=== PATIENT | female | born 1965 | race African-American/Black ===

== ENCOUNTER 2017-02-01 10:48 | Emergency (ER) | payer OTHER ==
[~2017-02-01] VITALS: Ht 172.7 cm; Wt 63.5 kg
[2017-02-01 10:48] VITALS: BP 175/79
[~2017-02-01 10:48] MED LIST: HYDR-971 PO; HYDR1TAB12 PO; ONDA4TAB10 PO; SULF1TAB24 PO
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
== END 2017-02-01 11:08 | disposition home or self-care (01) ==
LOC: ER 10:48
DX: Z71.1 Person with feared health complaint in whom no diagnosis is made (principal); Z88.6 Allergy status to analgesic agent; Z88.8 Allergy status to other drugs, medicaments and biological substances
CPT/HCPCS: 99281

== ENCOUNTER 2017-02-07 14:25 | Emergency (ER) | payer OTHER ==
[~2017-02-07] VITALS: Ht 172.7 cm; Wt 63.5 kg
--- NOTE | 2017-02-07 15:19 | RAD ---
Lumbar spine, 3 views, 02/07/2017: History: Back pain, multiple falls The lumbar vertebral heights are well-maintained. The intervertebral disc spaces are well preserved. No fracture or dislocation is identified. There are only minimal scattered marginal spurs. Aortic calcific plaquing is present. IMPRESSION: No acute lumbar spine abnormality is detected.
[2017-02-07 16:06] LABS: BACTERIA,URINE 0 /HPF (0-FEW); BILIRUBIN,URINE NEG (NEG); CLARITY,URINE CLEAR; COLOR,URINE YELLOW; GLUCOSE,URINE NEG (NEG); NITRITE,URINE NEG (NEG); RBC,URINE RARE /HPF (0-2); UROBILINOGEN,URINE 0.2 mg/dL (0.2 mg/dL)
[2017-02-07 16:07] LABS: SQUAMOUS EPITHELIAL CELL,UR FEW /LPF
--- NOTE | 2017-02-07 16:19 | PHYS DOC ---
Past History Past Medical History: Bipolar, Depression, Fibromyalgia, Other Past Surgical History: Hysterectomy, Other Alcohol Use: Occasionally Drug Use: Marijuana Adult General Chief Complaint Chief Complaint: MECHANICAL FALL HPI HPI Patient is a 52 year old female who presents with pain after a fall. She states last evening she slipped out of a chair & fell to the ground. She denies head trauma or loss of consciousness. She complains of generalized pain worse in lower back. Reported left knee pain & bilateral shoulder pain to RN, but denies shoulder pain to me & says she has abrasion to left knee but no bony pain, able to bear weight. She denies syncope as contributing factor in fall. She denies use of blood thinners. Denies extremity numbness/weakness, bowel/ bladder incontinence/retention, saddle anesthesia. She does have mild dysuria today only without fevers, abdominal pain, vomiting. Review of Systems Review of Systems Constitutional: Denies fever or chills Eyes: Denies change in visual acuity HENT: Denies nasal congestion or sore throat Respiratory: Denies cough or shortness of breath Cardiovascular: Denies chest pain GI: Denies abdominal pain, nausea, vomiting, bloody or diarrhea : Reports dysuria Musculoskeletal: Reports back & knee pain. Integument: Denies rash or skin lesions Neurologic: Denies headache, focal weakness or sensory changes Allergies Allergies Allergies Coded Allergies Type Severity Reaction Last Updated Verified aspirin Allergy Intermediate 03/04/16 Yes pregabalin Allergy Intermediate 03/04/16 Yes Physical Exam Physical Exam Constitutional: Well developed, well nourished, no acute distress, non-toxic appearance. HENT: Normocephalic, atraumatic, bilateral external ears normal, oropharynx moist, nose normal. Eyes: PERRLA, EOMI, conjunctiva normal, no discharge. Neck: supple, no stridor. no midline c-spine tenderness. Cardiovascular: RRR, no murmurs, no edema. Lungs & Thorax: LCTAB, no wheezing, no respiratory distress. Abdomen: soft, nontender, nondistended. Skin: Warm, dry, no erythema, no rash. Back: generalized lumbar spine tenderness without step offs, left CVA tenderness. Extremities: bilateral shoulders no focal bony tenderness. left knee no swelling/deformity, there is a small 3 cm very superficial abrasion to superolateral left knee. normal ROM, negative anterior/posterior drawer, stable to valgus/varus stress, dp/pt 2+, sensation intact to foot. Neurologic: Alert and oriented X 3, no focal deficits noted. Psychologic: paranoid Current Patient Data Vital Signs Vital Signs Date Time Temp Pulse Resp B/P (MAP) Pulse Ox O2 Delivery O2 Flow Rate FiO2 02/07/17 14:25 98.5 96 18 97 Room Air Lab Results Laboratory Tests Test 02/07/17 15:35 Urine Collection Type Unknown Urine Color Yellow Urine Clarity Clear Urine pH 6.0 Urine Specific [place] 1.020 Urine Protein Neg (NEG-TRACE) Urine Glucose (UA) Neg mg/dL (NEG) Urine Ketones (Stick) Neg mg/dL (NEG) Urine Blood Neg (NEG) Urine Nitrite Neg (NEG) Urine Bilirubin Neg (NEG) Urine Urobilinogen Dipstick 0.2 mg/dL (0.2 mg/dL) Urine Leukocyte Esterase Neg (NEG) Urine RBC Rare /HPF (0-2) Urine WBC 1-4 /HPF (0-4) Urine Squamous Epithelial Cells Few /LPF Urine Bacteria 0 /HPF (0-FEW) Urine Mucus Slight /LPF EKG EKG [] Radiology/Procedures Radiology/Procedures PROCEDURE: LUMBAR SPINE 2-3V Lumbar spine, 3 views, 02/07/2017: History: Back pain, multiple falls The lumbar vertebral heights are well-maintained. The intervertebral disc spaces are well preserved. No fracture or dislocation is identified. There are only minimal scattered marginal spurs. Aortic calcific plaquing is present. IMPRESSION: No acute lumbar spine abnormality is detected. DICTATED AND SIGNED BY: KAREEM QUILES MD DATE: 02/07/17 1516[] Course & Med Decision Making Course & Med Decision Making Pertinent Labs and Imaging studies reviewed. (See chart for details) The patient presents with pain after a fall. She is well appearing with minimal findings on exam. Obtained x-ray of lumbar spine which was the only location with bony tenderness on my exam. No acute findings. She had very mild CVA tenderness but no evidence of UTI, no significant blood. Recommend supportive care for minor injuries from mechanical fall. Tylenol/ibuprofen, ice /heat, triple antibiotic ointment on abrasion. Patient slept through her visit & was upset that she was not given pain medication. I find no indication for narcotic pain medication based on exam today. Patient instructed to follow up with primary care, return for symptoms of cauda equina syndrome or otherwise worsening condition. Discharged home in stable condition. [] Dragon Disclaimer Dragon Disclaimer This chart was dictated in whole or in part using Voice Recognition software in a busy, high-work load, and often noisy Emergency Department environment. It may contain unintended and wholly unrecognized errors or omissions. Departure Departure: Impression: Primary Impression: Lower back pain Disposition: HOME, SELF-CARE Condition: STABLE Referrals: TERRIE CASAS APRN (PCP) Patient Instructions: Back Pain, Adult, [id number] Additional Instructions: You were seen in the emergency department today for pain after your fall. your x-ray & urine test were normal. Please rest, take tylenol or ibuprofen for pain. Follow up with your primary care doctor in 2-3 days. Come back for loss of control of bowels or bladder, numbness or weakness in arms or legs, or otherwise worsening condition. SPIKE LATIF MD Feb 07, 2017 16:19
[2017-02-07 16:24] VITALS: BP 98/51
[2017-02-07] MEDS ORDERED: ACETAMINOPHEN 500 MG TABLET PO ONE (16:45)
[2017-02-07] MEDS ORDERED: CYCLOBENZAPRINE 10 MG TABLET. PO ONE (16:45)
== END 2017-02-07 16:24 | disposition home or self-care (01) ==
LOC: ER 14:25
DX: M54.5 Low back pain (principal); M25.512 Pain in left shoulder; M25.511 Pain in right shoulder; M25.561 Pain in right knee; R30.0 Dysuria; S80.212A Abrasion, left knee, initial encounter; M79.7 Fibromyalgia; R29.6 Repeated falls; Z88.6 Allergy status to analgesic agent; Z88.8 Allergy status to other drugs, medicaments and biological substances; W07.XXXA Fall from chair, initial encounter; Y93.89 Activity, other specified; Y99.8 Other external cause status; Y92.89 Other specified places as the place of occurrence of the external cause
CPT/HCPCS: 72100; 81001; 99285-25

== ENCOUNTER 2017-02-07 20:33 | Emergency (ER) | payer OTHER ==
[~2017-02-07] VITALS: Ht 172.7 cm; Wt 63.5 kg
[2017-02-07 20:40] VITALS: BP 113/59
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
== END 2017-02-07 21:05 | disposition home or self-care (01) ==
LOC: ER 20:33
DX: M54.5 Low back pain (principal); G89.29 Other chronic pain; M79.7 Fibromyalgia; F31.9 Bipolar disorder, unspecified; Z90.710 Acquired absence of both cervix and uterus; Z88.6 Allergy status to analgesic agent; Z88.8 Allergy status to other drugs, medicaments and biological substances
CPT/HCPCS: 99281; 99284

== ENCOUNTER 2017-04-10 10:17 | Inpatient (IN) | payer OTHER ==
[~2017-04-10] VITALS: Ht 172.7 cm; Wt 66.8 kg
--- NOTE | 2017-04-10 10:37 | PHYS DOC ---
General Chief Complaint: ALTERED MENTAL STATUS Stated Complaint: ALTERED LOC Time Seen by MD: 10:21 Source: patient, EMS Exam Limitations: clinical condition Problems: History of Present Illness Initial Comments Pt is 52/F to ED via EMS for AMS. EMS reports pt known to be homeless in the past found by law enforcement wandering on side of road disoriented. Her gait was reportedly unsteady and she appeared to be disoriented. Law enforcement feared she may have a medical emergency or walk out in front of a car so they called EMS. In her possession was a bag containing eviction letter and fresh emesis. EMS reports that the patient has no neuro deficits is protecting her airway and clearing her secretions but she appears to be very sleepy or under the influence. They report patient is disoriented 3 and will not rouse. Her VSS, GCS 14, pt has been to this ED in the past. Pt has h/o homelessness/ mental illness/drug seeking/substance abuse. In the emergency department patient did withdraw to pain with IV attempts she is a very difficult stick and required a left external jugular for vascular access. When advised of Hernandez catheter insertion the patient did wake up enough to avoid in a bedside commode and she was oriented 3 at that time according to the medic attending to her. Patient did complain of diffuse abdominal discomfort and back pain during the short time she was awake. Difficult to evaluate these symptoms as pt has h/o drug seeking. On my evaluation patient requires a sternal rub to wake, she will not answer questions and appears to continue snoring even when I manually open her right eye to check her pupils. There is no odor of alcohol but the patient is obviously heavily sedated. Timing/Duration: unsure Severity: moderate Modifying Factors: improves with other Associated Symptoms: other Allergies: Coded Allergies: aspirin (Verified Allergy, Intermediate, 03/04/16) pregabalin (Verified Allergy, Intermediate, 03/04/16) Past Medical History Medical History: other (bipolar, depression, fibromyalgia, drug seeking, chronic back pain) Surgical History: other (hysterectomy) Social History Smoker: cigarettes Alcohol: occasionally Drugs: marijuana Review of Systems All Other Systems: Reviewed and Negative (disoriented, accurate ROS unobtainable) Physical Exam Eyes: right eye normal inspection, right eye PERRL, right eye EOMI (patient does move her right eye independently but not following any type of instruction) , left eye other (no mass) Ear, Nose, Throat: hearing grossly normal, normal ENT inspection (poor dentition), normal pharynx Neck: full range of motion, supple Respiratory: normal breath sounds, no respiratory distress Cardiovascular: normal peripheral pulses, regular rate, rhythm Gastrointestinal: normal bowel sounds, non tender, soft, no organomegaly ( nondistended no mass) Back: no CVA tenderness, no vertebral tenderness Extremities: normal range of motion, non-tender, no pedal edema, no calf tenderness, pelvis stable Neurologic/Psychiatric: music publisher II-XII nml as tested, no motor/sensory deficits, oriented x 3, other (sedated/lethargic, no lateralizing neurodeficit) Skin: warm/dry (poor turgor) Orders, Labs, Meds PATIENT: LEANDRO RODRÍGUEZ ACCOUNT: [id number] : 1965 LOCATION: ER AGE: 52 SEX: F EXAM STATUS: REG ER ORD. PHYSICIAN: JS LEIJA DO REASON: AMS PROCEDURE: PORTABLE CHEST 1V Indication: Altered mental status. Time of exam 10:49 AM Correlation is made with prior study from 05/12/2016. FINDINGS: The heart size is normal. The lungs are clear. No pleural effusion or pneumothorax is identified. The pulmonary vascularity is normal. IMPRESSION: No acute abnormality detected. DICTATED AND SIGNED BY: ROBIN BURGOS MD DATE: 04/10/17 1102 CC: TERRIE CASAS FINANCIAL COACH; JS LEIJA DO ~ UDS +cocaine, methamphetamine, benzodiazepines CMP, CK, Trop I all normal Hb 11.7 normocytic UA: few SE, 1-4 WBC, mod LE EKG: NSR 70 bpm, incomplete RBBB no STEMI. Interpreted by Dr Leija 1310: Pt is on 2nd L NS IV bolus, rocephin 1g IV also initiated for possible UTI. Pt remains stable yet sedated, no improvement in rousability. I have asked that stone and concrete washer hospitalist be paged to discuss possible admission/ observation. Pt may be sedated due to benzodiazepines, may have been up for days due to illicit stimulants now somnolescent as effect wanes. I considered a benzodiazepine reversal agent but in the context of custodial polypharmacy seizure possibility outweighs early waking of patient. 1336: I discussed the patient with stone and concrete washer hospitalist Dr. Luna. After thorough discussion of the patient's history, presentation, and ED course/findings he agrees to accept the patient for inpatient telemetry admission to continue observation and IV hydration, antibacterial treatment intravenously for UTI, and monitor cardiac enzymes/CK until she is fully awake. Impressions: Polysubstance abuse/intoxication Hyper somnolescent Urinary tract infection Normocytic anemia Departure Time of Disposition: 13:38 Disposition: 09 ADMITTED INPATIENT Condition: STABLE JS LEIJA DO Apr 10, 2017 10:37
[2017-04-10] MEDS ORDERED: IV NORMAL SALINE 1,000ML 1,000 ML IV SCH ×2 (10:45→12:39)
--- NOTE | 2017-04-10 11:05 | RAD ---
Indication: Altered mental status. Time of exam 10:49 AM Correlation is made with prior study from 05/12/2016. FINDINGS: The heart size is normal. The lungs are clear. No pleural effusion or pneumothorax is identified. The pulmonary vascularity is normal. IMPRESSION: No acute abnormality detected.
[2017-04-10 11:23] LABS: AMPHETAMINE/METHAMPHETAMINE POS (NEG); BACTERIA,URINE 0 /HPF (0-FEW); BARBITURATES NEG (NEG); BENZODIAZEPINES POS (NEG); BILIRUBIN,URINE NEG (NEG); CANNABINOIDS NEG (NEG); CLARITY,URINE HAZY; COCAINE POS (NEG); COLOR,URINE YELLOW; GLUCOSE,URINE NEG (NEG); METHADONE NEG (NEG); NITRITE,URINE NEG (NEG); OPIATES NEG (NEG); PHENCYCLIDINE NEG (NEG); RBC,URINE 0 /HPF (0-2); SQUAMOUS EPITHELIAL CELL,UR FEW /LPF; UROBILINOGEN,URINE 0.2 mg/dL (0.2 mg/dL)
[2017-04-10 12:09] LABS: BASO # 0.1 x10^3/uL (0.0-0.2); BASO % 1 % (0-3); EOS # 0.1 x10^3/uL (0.0-0.7); EOS % 2 % (0-3); HEMATOCRIT 35.5 % (36.0-47.0); HEMOGLOBIN 11.7 g/dL (12.0-15.5); LYMPH # 2.7 x10^3/uL (1.0-4.8); LYMPH % 57 % (24-48); MEAN CORPUSCULAR HEMOGLOBIN 31 pg (25-35); MEAN CORPUSCULAR HGB CONC 33 g/dL (31-37); MEAN CORPUSCULAR VOLUME 94 fL (79-100); MONO # 0.4 x10^3/uL (0.0-1.1); MONO % 8 % (0-9); NEUT # 1.5 x10^3uL (1.8-7.7); NEUT % 32 % (31-73); PLATELET COUNT 354 x10^3/uL (140-400); RED BLOOD COUNT 3.79 x10^6/uL (3.50-5.40); RED CELL DISTRIBUTION WIDTH 14.7 % (11.5-14.5); WHITE BLOOD COUNT 4.7 x10^3/uL (4.0-11.0)
[2017-04-10 12:18] LABS: ACETAMIN < 2.0 mcg/mL (10-30); ETHANOL < 10 mg/dL (0-10); SALIC 3.2 mg/dL (2.8-20.0)
[2017-04-10 12:20] LABS: ALBUMIN 3.5 g/dL (3.4-5.0); CALCIUM 9.3 mg/dL (8.5-10.1); CREATININE 0.8 mg/dL (0.6-1.0); GFR 91.5; MAGNESIUM 2.1 mg/dL (1.8-2.4); TOTAL BILIRUBIN 0.2 mg/dL (0.2-1.0); TOTAL PROTEIN 7.8 g/dL (6.4-8.2)
[2017-04-10 12:22] LABS: DIRECT BILIRUBIN 0.1 mg/dL (0.0-0.2); POTASSIUM 3.9 mmol/L (3.5-5.1)
--- NOTE | 2017-04-10 12:57 | EKG ---
[address] [address] Test Date: 2017-04-10 Test Time: 11:59:27 Pat Name: LEANDRO RODRÍGUEZ Department: Room: Gender: F Loading Machine Adjuster: VIANCA : 1965 Requested By: JS LEIJA Order Number: [id number] Reading MD: Rohit Dangelo MD Measurements Intervals [place] Rate: 70 P: 52 VA: 156 QRS: 60 QRSD: 86 T: 55 QT: 396 QTc: 430 Interpretive Statements SINUS RHYTHM Electronically Signed On 04-11-2017 16:40:37 MARKER HAND by Rohit Dnagelo MD
[2017-04-10] MEDS ORDERED: cefTRIAXone SODIUM 1 GM VIAL IV ONE (13:36)
[2017-04-10] MEDS ORDERED: IV NORMAL SALINE 50ML 50 ML ONE (13:36)
[2017-04-10] MEDS ORDERED: ONDANSETRON PF 4 MG/2 ML VIAL. IV PRN (13:45)
[2017-04-10 16:27] VITALS: BP 105/69
[2017-04-10] MEDS ORDERED: ALBUTEROL SULFATE 2.5 MG/3 ML NEBU. NEB PRN (16:30)
--- NOTE | 2017-04-10 18:01 | HP ---
ADMIT DATE: 04/10/2017 HISTORY OF PRESENT ILLNESS: The patient is a 52-year-old female patient who was brought to the Emergency Room by emergency medical services for altered mental status. She is reportedly homeless in the past, found by law enforcement wandering on the side of the road disoriented. Her gait was reportedly unsteady and she appeared to be disoriented. The law enforcement fears that she may have a medical emergency or walk out in front of a car, so they called EMS. In her possession was a bag containing eviction letter and fresh emesis. Apparently when she was seen initially, she has no new neurological deficit. She is protecting her airways and clearing her secretions, but she appears to be very sleepy or under the influence. They report the patient is disoriented x 3 and will not arouse; however, on arrival to the Emergency Room, her vital signs were stable. Her Sarah coma scale was 14. The patient has been to this Emergency Room on multiple occasions before. She does have a history of homelessness mental illness, drug seeking and substance abuse. In the Emergency Department, the patient did not withdraw to pain, with IV attempts as she is very difficult stick and required a left external jugular for vascular access. When advised a Hernandez catheter insertion, the patient did wake up enough to void in bedside commode and she was oriented x 3 at that time according to the medical attending to her. The patient did complain of diffuse abdominal discomfort and back pain during short time she was awake. Difficult to evaluate her symptoms as patient has history of drug seeking. When she was evaluated by the Emergency Room physician, she requires a sternal rub to wake. She will not answer questions and appears to continue snoring even when I manually open her eyes to check her pupils. There is no odor of alcohol, but the patient is obviously heavily sedated. PAST MEDICAL HISTORY: Significant for bipolar disorder, depression, fibromyalgia, drug seeking, chronic back pain. PAST SURGICAL HISTORY: Significant for hysterectomy. ALLERGIES: She is allergic to ASPIRIN and PREGABALIN. MEDICATIONS: She is on hydrocodone/APAP 5/325 one to two tablets every 6 hours. She is on ondansetron 4 mg every 6 hours, and sulfamethoxazole/trimethoprim 1 tablet twice a day. FAMILY HISTORY: Unobtainable. SOCIAL HISTORY: She is homeless. She does smoke cigarettes or drink alcohol occasionally and abuse marijuana. PHYSICAL EXAMINATION: GENERAL: In the Emergency Room, the patient basically was sleepy and difficult to arouse, but general examination showed that she was pale, but no jaundice, cyanosis, or thyromegaly, no jugular venous distension, no lower limb edema. VITAL SIGNS: Her heart rate was 72, blood pressure was 103/65, temperature was 97.6, respiratory rate was 16 and oxygen saturation was 100% on room air. HEAD, EYES, EARS, NOSE AND THROAT: Showed normocephalic, atraumatic. NECK: Supple. HEART: Showed normal first and second heart sounds. No gallop, rub or murmur. CHEST: Clear to auscultation. No crepitation or rhonchi. ABDOMEN: Distended, soft, nontender. No guarding or rigidity. No organomegaly. Hernial orifice intact. Bowel sounds normal. NEUROLOGIC: She was sleepy, but arousable. All her cranial nerves are intact. EXTREMITIES: She moves extremities without difficulty. LABORATORY DATA: While in the Emergency Room, she has had lab work done, which showed a white cell count 4700, hemoglobin 11.7, hematocrit 35.5, MCV 94, platelet count of 354,000. Her chemistry showed a serum sodium 138, potassium 3.9, chloride 103, bicarbonate 28, anion gap of 7, BUN 20, creatinine was 0.8. Estimated GFR was 91 mL per minute. Her glucose 82, calcium was 9.3, magnesium 2.1. Total bilirubin, AST, ALT, alkaline phosphatase were normal. CK was 79. Troponin was less than 0.017. Total protein was 7.8, albumin was 3.5, and lipase 112. Urinalysis showed the urine was yellow, hazy with a pH of 6.5, specific gravity 1.015. The urine was negative for glucose, ketones, blood, nitrite. There was moderate amount of leukocyte esterase, 0 rbc's, 1-4 wbc's, no bacteria. However, her toxic screen was positive for amphetamine, methamphetamine, benzodiazepine, cocaine, negative for opiates, methadone, acetaminophen, salicylate, barbiturates, phencyclidine and alcohol. ASSESSMENT AND PLAN: The patient was started on IV fluid. She was also started on IV antibiotic. We will monitor her labs as she probably has been into sleep for 2-3 days and took large amount of Xanax; I think she took about 7, according to the ER physician, and now she is crashing. We will monitor all her lab works tomorrow and decide on further management accordingly. JAZ ROSE MD DR: EBONY/maikol JOB#: [id number] / [id number]
[2017-04-10] MEDS: IV NORMAL SALINE 1,000ML 1,000 ML IV SCH ×2 (18:03→20:25)
[2017-04-10] MEDS: ACETAMINOPHEN 325 MG TABLET PO PRN (18:05)
[2017-04-10 19:22] VITALS: BP 83/50
[2017-04-10 21:29] VITALS: BP 95/62
[2017-04-10 23:41] VITALS: BP 91/54
[2017-04-11] MEDS ORDERED: TRAZ-90 PO (00:18)
[2017-04-11] MEDS ORDERED: LISI-334 PO (00:18)
[2017-04-11] MEDS ORDERED: LORA10TA3 PO (00:18)
[2017-04-11] MEDS ORDERED: FAMO20TA5 PO (00:18)
[2017-04-11] MEDS ORDERED: RISP1TAB3 PO (00:18)
[2017-04-11] MEDS ORDERED: DIVA500T17 PO (00:18)
[2017-04-11] MEDS ORDERED: OMEP20CA9 PO (00:18)
[2017-04-11] MEDS ORDERED: ALBU8.5H8 INH (00:18)
[2017-04-11] MEDS ORDERED: ARIP10TA15 PO (00:18)
[2017-04-11] MEDS ORDERED: FLUO20CA8 PO (00:18)
[2017-04-11] MEDS ORDERED: CLON0.25 PO (00:18)
[2017-04-11] MEDS: IV NORMAL SALINE 1,000ML 1,000 ML IV SCH ×2 (01:07→14:07)
[2017-04-11] MEDS: ACETAMINOPHEN 325 MG TABLET PO PRN ×2 (05:24→10:51)
[2017-04-11 05:43] VITALS: BP 109/75
[2017-04-11] MEDS ORDERED: ONDA4TAB12 PO (07:34)
[2017-04-11 09:04] LABS: BASO % 1 % (0-3); EOS # 0.1 x10^3/uL (0.0-0.7); EOS % 2 % (0-3); HEMATOCRIT 34.1 % (36.0-47.0); HEMOGLOBIN 11.4 g/dL (12.0-15.5); LYMPH # 1.8 x10^3/uL (1.0-4.8); LYMPH % 47 % (24-48); MEAN CORPUSCULAR HEMOGLOBIN 32 pg (25-35); MEAN CORPUSCULAR HGB CONC 33 g/dL (31-37); MEAN CORPUSCULAR VOLUME 95 fL (79-100); MONO # 0.4 x10^3/uL (0.0-1.1); MONO % 10 % (0-9); NEUT # 1.5 x10^3uL (1.8-7.7); NEUT % 40 % (31-73); PLATELET COUNT 322 x10^3/uL (140-400); RED BLOOD COUNT 3.61 x10^6/uL (3.50-5.40); RED CELL DISTRIBUTION WIDTH 14.9 % (11.5-14.5); WHITE BLOOD COUNT 3.7 x10^3/uL (4.0-11.0)
[2017-04-11] MEDS ORDERED: ARIPiprazole 10 MG TABLET PO SCH (09:15)
[2017-04-11] MEDS ORDERED: NON FORMULARY ITEM (Albuterol Sulfate (Proair Hfa Inhaler) 1 PUFF) INH SCH ×2 (09:15→12:00)
[2017-04-11] MEDS ORDERED: DIVALPROEX ER 500 MG TAB.ER.24H PO SCH ×2 (09:15→18:50)
[2017-04-11] MEDS ORDERED: ONDANSETRON ODT 4 MG TAB.RAPDIS PO PRN ×2 (09:15)
[2017-04-11] MEDS ORDERED: LISINOPRIL 20 MG TABLET PO SCH (09:15)
[2017-04-11] MEDS ORDERED: NON FORMULARY ITEM (Loratadine 10 MG) PO SCH (09:15)
[2017-04-11] MEDS ORDERED: FLUoxetine HCL 20 MG CAPSULE PO SCH (09:15)
[2017-04-11 09:17] LABS: ALBUMIN 2.8 g/dL (3.4-5.0); ALBUMIN/GLOBULIN RATIO 0.8 (1.0-1.7); CALCIUM 8.4 mg/dL (8.5-10.1); CREATININE 0.8 mg/dL (0.6-1.0); GFR 91.5; TOTAL BILIRUBIN 0.3 mg/dL (0.2-1.0); TOTAL PROTEIN 6.5 g/dL (6.4-8.2)
[2017-04-11 10:29] VITALS: BP 103/71
[2017-04-11] MEDS: FAMOTIDINE 20 MG TABLET PO SCH ×2 (10:52→19:03)
[2017-04-11 15:13] VITALS: BP 108/67
--- NOTE | 2017-04-11 17:25 | DS ---
DATE OF DISCHARGE: 04/11/2017 HOSPITAL COURSE: The patient is awake, alert, responding appropriately. She has been up and about ambulating without assistance or assistive devices. She claimed that she does not know how she got her cocaine and methamphetamine, but she did take Xanax; however, nursing staff did not voice any concern and stated had an uneventful night. PHYSICAL EXAMINATION: GENERAL: When I examined her, she looked well and was clearly in no apparent respiratory distress, pale, but no jaundice, cyanosis, or thyromegaly. No jugular venous distention. No limb edema. VITAL SIGNS: Her heart rate was 86, blood pressure was 108/67, temperature was 97.8, respiratory rate 20, and oxygen saturation was 96%. HEAD, EYES, EARS, NOSE, AND THROAT: Showed normocephalic, atraumatic. NECK: Supple. HEART: Showed normal first and second heart sound with no gallop, rub, or murmur. CHEST: Clear to auscultation. No crepitation or rhonchi. ABDOMEN: Distended, soft, nontender. NEUROLOGIC: She is awake, alert, responding appropriately. Cranial nerves intact. She moves extremities without difficulty. She ambulates without assistance or assistive devices. Her intake over the last 24 hours was 2300. No output was recorded. LABORATORY DATA: Her lab work this morning showed a white cell count of 3700, hemoglobin 11.4, hematocrit 34, MCV 95, platelet count 222,000. Her chemistry showed a serum sodium 142, potassium 4, chloride 110, bicarbonate 25, anion gap of 7, BUN 16, creatinine 0.8. Estimated GFR was 91 mL per minute. Her glucose was 113, calcium was 8.4. Total bilirubin, AST, ALT, alkaline phosphatase were normal. CK was only 55. Total protein was 6.5, albumin 2.8. Urinalysis is unremarkable. Urine toxicology screen was positive for benzodiazepine, cocaine, amphetamine and methamphetamine. DISCHARGE MEDICATIONS: The patient will be discharged to [facility] to continue on her current medications that included lisinopril 20 mg once a day, fluoxetine 20 mg once a day, famotidine 20 mg p.o. b.i.d. Divalproex 500 mg daily, aripiprazole 10 mg once a day, albuterol sulfate 2.5 mg every 4 hours as needed. FINAL DISCHARGE DIAGNOSES: 1. Multiple polysubstance abuse including amphetamine, methamphetamine, benzodiazepine, and cocaine. 2. Altered mental status. 3. Homelessness. JAZ ROSE MD DR: EBONY/maikol JOB#: [id number] / [id number]
[2017-04-11] MEDS ORDERED: traZODone 100 MG TABLET. PO ONE (18:45)
[2017-04-11] MEDS ORDERED: clonazePAM 0.5 MG TABLET PO ONE (18:45)
[2017-04-11] MEDS ORDERED: ACETAMINOPHEN 325 MG TABLET PO ONE (19:04)
[2017-04-11] MEDS ORDERED: FAMOTIDINE 20 MG TABLET PO SCH (21:00)
[2017-04-11] MEDS ORDERED: LACTOBACILLUS RHAMNOSUS GG 1 CAPSULE. PO SCH (21:00)
[2017-04-12] MEDS ORDERED: DIVALPROEX ER 500 MG TAB.ER.24H PO SCH (09:00)
[2017-04-12] MEDS ORDERED: ARIPiprazole 10 MG TABLET PO SCH (09:00)
[2017-04-12] MEDS ORDERED: FLUoxetine HCL 20 MG CAPSULE PO SCH (09:00)
[2017-04-12] MEDS ORDERED: NON FORMULARY ITEM (Loratadine 10 MG) PO SCH (09:00)
[2017-04-12] MEDS ORDERED: LISINOPRIL 20 MG TABLET PO SCH (09:00)
== END 2017-04-11 19:10 | disposition home or self-care (01) | DRG 896 ==
LOC: ER 10:17 → 1 SOUTH 13:42
PROVIDERS: ADMIT Internal Medicine; ATTEND Internal Medicine
DX: F14.129 Cocaine abuse with intoxication, unspecified (principal); G92 Toxic encephalopathy; N39.0 Urinary tract infection, site not specified; F31.9 Bipolar disorder, unspecified; D64.9 Anemia, unspecified; F15.129 Other stimulant abuse with intoxication, unspecified; F12.10 Cannabis abuse, uncomplicated; F17.210 Nicotine dependence, cigarettes, uncomplicated; R40.2410 Glasgow coma scale score 13-15, unspecified time; M79.7 Fibromyalgia; M54.9 Dorsalgia, unspecified; G89.29 Other chronic pain; Z59.0 Homelessness; Z76.5 Malingerer [conscious simulation]; Z90.710 Acquired absence of both cervix and uterus; Z88.8 Allergy status to other drugs, medicaments and biological substances
CPT/HCPCS: 36415; 71010; 80048; 80053; 80076; 80307; 81001; 82140; 82550; 83690; 83735; 84484; 85025; 87086; 93005; 99406; G0480; J0696; G0479; J7030

== ENCOUNTER → 2020-06-09 | Outpatient (CLI) | payer OTHER ==
[~2020-06-09] MED LIST changes: +ALBU2.5V8 INH; +ARIP10TA15 PO; +CLON0.25 PO; +DIVA500T17 PO; +FAMO20TA5 PO; +FLUO20CA20 PO; +HYDR-3165 PO; -HYDR-971 PO; -HYDR1TAB12 PO; +HYDR1TAB13 PO; +LISI-334 PO; +LORA10TA3 PO; +OMEP20CA16 PO; +ONDA4TAB12 PO; +RISP1TAB88 PO; +TRAZ-125 PO
== END ==
LOC: LAB 14:00
PROVIDERS: ATTEND Radiology Diagnostic Radiology
DX: Z01.812 Encounter for preprocedural laboratory examination (principal); I60.8 Other nontraumatic subarachnoid hemorrhage; Z20.828 Contact with and (suspected) exposure to other viral communicable diseases
CPT/HCPCS: C9803; U0003

== ENCOUNTER → 2020-07-13 | Outpatient (CLI) | payer OTHER ==
[~2020-07-13] MED LIST changes: -LISI-334 PO; +LISI20TA18 PO
--- NOTE | 2020-07-13 21:56 | RAD ---
Exam: Left hand 3 views. Left wrist 3 views. Left forearm 2 views INDICATION: Injury, fall 3 days ago TECHNIQUE: Frontal, lateral and oblique views of the left hand and wrist. Frontal and lateral views o f the left tibia and fibula Comparisons: None FINDINGS: Hand: Bone mineralization is normal. No acute or healed fractures. Soft tissues are unremarkable. Joint spa oskar are well-maintained. Wrist: There is a mildly displaced obliquely oriented fracture through the distal ulnar. Soft tissue swellin g at the distal wrist. Fixation device at the distal radius. Bone mineralization is normal. Forearm: Redemonstration of mildly displaced fracture at the distal left ulna diaphysis. Bone mineralization i s normal. No other fractures are seen. Joint spaces are well-maintained. IMPRESSION: 1. Mildly displaced obliquely or acute fracture at the distal ulna. 2. No acute osseous abnormality at the left wrist 3. No acute osseous abnormality at the left hand Electronically signed by: Mag Webber MD (07/13/2020 9:54 PM) BRENDAN
== END ==
LOC: RAD 17:54
PROVIDERS: ATTEND Family Medicine
DX: S52.692A Other fracture of lower end of left ulna, initial encounter for closed fracture (principal); W19.XXXA Unspecified fall, initial encounter; Y93.89 Activity, other specified; Y92.89 Other specified places as the place of occurrence of the external cause; Y99.8 Other external cause status
CPT/HCPCS: 73090; 73110; 73130

== ENCOUNTER → 2020-08-31 | Outpatient (CLI) | payer OTHER ==
--- NOTE | 2020-09-01 08:42 | RAD ---
EXAM: XR LT WRIST 3VIEWS 08/31/2020 1:53 PM CLINICAL INDICATION: Postop ulna fracture COMPARISON: Left wrist radiograph 07/13/2020 TECHNIQUE: 3 views of the left wrist FINDINGS: There is an old internally fixed distal humerus fracture. No hardware complication. A mini page distal ulnar diaphyseal fracture is unchanged in alignment. There is increased callus formation around the fracture but persistent fairly discrete fracture line. IMPRESSION: Healing ulnar diaphyseal fracture with callus formation around the fracture but fairly d iscrete persistent fracture lucency. Electronically signed by: Dena Todd MD (09/01/2020 8:40 AM) [id number]
== END ==
LOC: DXRAD 13:39
PROVIDERS: ATTEND Physician Assistant
DX: S52.235D Nondisplaced oblique fracture of shaft of left ulna, subsequent encounter for closed fracture with routine healing (principal); L84 Corns and callosities; Z87.81 Personal history of (healed) traumatic fracture; X58.XXXD Exposure to other specified factors, subsequent encounter
CPT/HCPCS: 73110

== ENCOUNTER 2021-04-27 11:10 | Emergency (ER) | payer OTHER ==
[~2021-04-27] VITALS: Ht 175.3 cm; Wt 97.6 kg
[~2021-04-27 11:10] MED LIST changes: -ARIP10TA15 PO; +ARIP10TA56 PO; -FLUO20CA20 PO; +FLUO20CA22 PO
[2021-04-27] MEDS ORDERED: IOHEXOL 300 MG/ML 75 ML VIAL. IV ONE (11:30)
--- NOTE | 2021-04-27 11:32 | PHYS DOC ---
Past History Past Medical History: Bipolar, Depression, Fibromyalgia Past Surgical History: Hysterectomy, Other Alcohol Use: Occasionally Drug Use: Marijuana General Adult EDM: Chief Complaint: NEURO SYMPTOMS/DEFICITS HPI: HPI: Patient is a 56-year-old female coming in via EMS as a possible code stroke due to difficulty talking from a group living facility. History provided by EMS because patient has an altered mental status. They state that the home she was at risk for patients with "mental disorders". He said that she today when patient woke up she has been confused and not verbal. Patient's baseline she is verbal but has difficulty walking, has a history of previous CVA with left-sided deficits. Patient confused but following basic commands. When asked if she has any pain she pointed to her stomach. Patient states that she has had burning with urination and diarrhea which started this morning. Review of Systems: Review of Systems: All other systems within normal limits except for as noted in the HPI Current Medications: Current Meds: Current Medications Medications (Trade) Dose Ordered Sig/Zoraida Start Time Stop Time Status Last Admin Dose Admin Iohexol (Omnipaque 300 Mg/ml) 75 ml 1X ONCE 04/27/21 11:30 04/27/21 11:31 Allergies: Allergies: Allergies Coded Allergies Type Severity Reaction Last Updated Verified aspirin Allergy Intermediate 03/04/16 Yes pregabalin Allergy Intermediate 03/04/16 Yes cyclobenzaprine Allergy Unknown 04/11/17 Yes Physical Exam: PE: Constitutional: Well developed, well nourished, no acute distress, non-toxic appearance. [] HENT: Normocephalic, atraumatic, bilateral external ears normal, nose normal. [] Eyes: Right pupil reactive to light, left eye absent conjunctiva normal, no discharge. [] Neck: No rigidity, supple, no stridor. [] Cardiovascular: Regular rate and rhythm, brisk cap refill [] Lungs & Thorax: Non labored symmetric respirations, no tachypnea or respiratory distress [] Abdomen: Soft, nondistended, tenderness palpation without guarding or. Skin: Warm, dry, no erythema, no rash. [] Back: Unremarkable Extremities: No deformities, range of motion grossly intact, no lower extremity edema [] Neurologic: Alert and oriented X 3, no focal deficits noted. [] Psychologic: Affect normal, judgement normal, mood normal. [] EKG: EKG: Sinus rhythm, heart rate 70 bpm, normal axis, no ST elevation or depression, no ectopy. [] Radiology/Procedures: Radiology/Procedures: [address] [address] IMAGING REPORT Signed PATIENT: LEANDRO RODRÍGUEZ ACCOUNT: [id number] : 1965 LOCATION: ER AGE: 56 SEX: F EXAM STATUS: REG ER ORD. PHYSICIAN: DENA DANIEL MD REASON: DISTENTION, TENDERNESS, OMNI 300 75 ML PROCEDURE: CT ABD PELV W/ IV CONTRST ONLY Exam: CT abdomen/pelvis with intravenous contrast Indication: Distention, tenderness Comparison: CT abdomen and pelvis 08/03/2009 Technique: Helical CT imaging performed of the abdomen and pelvis after the intravenous administration of 75 mL Omnipaque 300 contrast. Sagittal and coronal reformats were obtained. One or more of the following individualized dose reduction techniques were utilized for this examination: 1. Automated exposure control 2. Adjustment of the mA and/or kV according to patient size 3. Use of iterative reconstruction technique. Findings: Lower chest: there is a partially visualized lobulated circumscribed nodule in the left lower lobe measuring 1.6 x 1.5 cm (image 2, series 2). The heart is normal in size. Liver: Liver is normal in size. No focal liver lesions. Gallbladder/Biliary Tree: Normal. Pancreas: Normal. Spleen: Normal. Adrenal Glands: Nodular thickening of the left adrenal gland is unchanged from 2009. The right adrenal gland is normal. Kidneys/Ureters/Bladder: Kidneys are normal in size. No hydronephrosis. There is a subcentimeter hypodensity in the right kidney that is too small to characterize but likely simple cysts. No hydronephrosis. There is mild bladder wall thickening, nonspecific. Reproductive Organs: Uterus is surgically absent. No adnexal mass Stomach, small bowel, and colon: Stomach is normal. There is no small bowel obstruction. Appendix is normal. The colon is unremarkable. Vasculature: Abdominal aorta is normal in caliber. There is mild calcified aortoiliac atherosclerosis. Lymph Nodes: No lymphadenopathy. Peritoneum and retroperitoneum: No free fluid or free air. Bones: No acute osseous abnormalities. IMPRESSION: 1. Partially visualized lobulated nodule in the left lower lobe measuring at least 1.6 x 1.5 cm. This is new from CT abdomen and pelvis 2009. Recommend dedicated CT of the chest to fully evaluate the lungs, and consider PET/CT or biopsy to further evaluate the nodule. 2. No acute abnormality in the abdomen and pelvis. Electronically signed by: Dena Todd MD (04/27/2021 12:36 PM) [id number] DICTATED AND SIGNED BY: DENA TODD MD DATE: 04/27/21 1153 CC: DENA DANIEL MD; CHRISTOPHER SANCHEZ MD ~MTH0 0 [][place] [address] IMAGING REPORT Signed PATIENT: LEANDRO RODRÍGUEZ ACCOUNT: [id number] : 1965 LOCATION: ER AGE: 56 SEX: F EXAM STATUS: REG ER ORD. PHYSICIAN: DENA DANIEL MD REASON: NEURO PROCEDURE: CT CODE STROKE HEAD WO CT STROKE HEAD W/O History: Reason: Stroke/ Spl. Instructions: / History: Comparison: None. Technique: Noncontrast CT imaging was performed of the head. Exposure: One or more of the following individualized dose reduction techniques were utilized for this examination: 1. Automated exposure control 2. Adjustment of the mA and/or kV according to patient size 3. Use of iterative reconstruction technique. Findings: No intracranial hemorrhage. No mass effect. No hydrocephalus. Encephalomalacia within the left frontal parietal and temporal lobes. Ex vacuo dilatation of the left lateral ventricle. Coil embolization on the left. Postoperative changes left globe. Mild right maxillary sinus mucosal thickening. Chronic bilateral medial orbital wall defect. Mastoid air cells are clear. No acute calvarial fracture. Impression: 1. No acute intracranial abnormality. 2. Encephalomalacia within the left frontoparietal and temporal lobes with ex vacuo dilatation of the left lateral ventricle. FOR INTERNAL CODING PURPOSES Critical result: Findings discussed with ER nurse practitioner at 04/27/2021 11:28 AM. RESULT CODE: (C) Electronically signed by: Michael Hernandez DO (04/27/2021 11:33 AM) [id number] DICTATED AND SIGNED BY: GWENDOLYNMICHAEL Alcaraz DO DATE: 04/27/21 1122 CC: DENA DANIEL MD; CHRISTOPHER SANCHEZ MD ~MTH0 0 Heart Score: C/O Chest Pain: No HEART Score for Chest Pain: HEART Score for Chest Pain Response (Comments) Value History Slighlty/Non-Suspicious 0 ECG Normal 0 Age >45 - < 65 1 Risk Factors 1 or 2 Risk Factors 1 Troponin < Normal Limit 0 Total 2 Risk Factors: Risk Factors: DM, Current or recent (<one month) smoker, HTN, HLP, family history of CAD, obesity. Risk Scores: Score 0 - 3: 2.5% MACE over next 6 weeks - Discharge Home Score 4 - 6: 20.3% MACE over next 6 weeks - Admit for Clinical Observation Score 7 - 10: 72.7% MACE over next 6 weeks - Early Invasive Strategies Course & Med Decision Making: Course & Med Decision Making Pertinent Labs and Imaging studies reviewed. (See chart for details) Patient answering questions. Per patient's daughter she is at her current baseline. Work-up unremarkable. History of old CVA and no acute findings on CT. [] Dragon Disclaimer: Dragon Disclaimer: This electronic medical record was generated, in whole or in part, using a voice recognition dictation system. Departure Departure: Impression: Primary Impression: Altered mental state Disposition: 01 HOME / SELF CARE / HOMELESS Condition: IMPROVED Referrals: CHRISTOPHER SANCHEZ MD (PCP) Patient Instructions: Altered Mental Status DENA DANIEL MD Apr 27, 2021 11:32
--- NOTE | 2021-04-27 11:35 | RAD ---
CT STROKE HEAD W/O History: Reason: Stroke/ Spl. Instructions: / History: Comparison: None. Technique: Noncontrast CT imaging was performed of the head. Exposure: One or more of the following individualized dose reduction techniques were utilized for thi s examination: 1. Automated exposure control 2. Adjustment of the mA and/or kV according to patient size 3. Use of iterative reconstruction technique. Findings: No intracranial hemorrhage. No mass effect. No hydrocephalus. Encephalomalacia within the left frontal parietal and temporal lobes. Ex vacuo dilatation of the left lateral ventricle. Coil embolization on the left. Postoperative changes left globe. Mild right maxillary sinus mucosal thickening. Chronic bilateral me dial orbital wall defect. Mastoid air cells are clear. No acute calvarial fracture. Impression: 1. No acute intracranial abnormality. 2. Encephalomalacia within the left frontoparietal and temporal lobes with ex vacuo dilatation of th e left lateral ventricle. FOR INTERNAL CODING PURPOSES Critical result: Findings discussed with ER nurse practitioner at 04/27/2021 11:28 AM. RESULT CODE: (C) Electronically signed by: Michael Hernandez DO (04/27/2021 11:33 AM) [id number]
--- NOTE | 2021-04-27 12:38 | RAD ---
Exam: CT abdomen/pelvis with intravenous contrast Indication: Distention, tenderness Comparison: CT abdomen and pelvis 08/03/2009 Technique: Helical CT imaging performed of the abdomen and pelvis after the intravenous administratio n of 75 mL Omnipaque 300 contrast. Sagittal and coronal reformats were obtained. One or more of the following individualized dose reduction techniques were utilized for this examinat ion: 1. Automated exposure control 2. Adjustment of the mA and/or kV according to patient size 3. Use of iterative reconstruction technique. Findings: Lower chest: there is a partially visualized lobulated circumscribed nodule in the left lower lobe me asuring 1.6 x 1.5 cm (image 2, series 2). The heart is normal in size. Liver: Liver is normal in size. No focal liver lesions. Gallbladder/Biliary Tree: Normal. Pancreas: Normal. Spleen: Normal. Adrenal Glands: Nodular thickening of the left adrenal gland is unchanged from 2010. The right adrena l gland is normal. Kidneys/Ureters/Bladder: Kidneys are normal in size. No hydronephrosis. There is a subcentimeter hypo density in the right kidney that is too small to characterize but likely simple cysts. No hydronephro sis. There is mild bladder wall thickening, nonspecific. Reproductive Organs: Uterus is surgically absent. No adnexal mass Stomach, small bowel, and colon: Stomach is normal. There is no small bowel obstruction. Appendix is normal. The colon is unremarkable. Vasculature: Abdominal aorta is normal in caliber. There is mild calcified aortoiliac atherosclerosis . Lymph Nodes: No lymphadenopathy. Peritoneum and retroperitoneum: No free fluid or free air. Bones: No acute osseous abnormalities. IMPRESSION: 1. Partially visualized lobulated nodule in the left lower lobe measuring at least 1.6 x 1.5 cm. Thi s is new from CT abdomen and pelvis 2009. Recommend dedicated CT of the chest to fully evaluate the l ungs, and consider PET/CT or biopsy to further evaluate the nodule. 2. No acute abnormality in the abdomen and pelvis. Electronically signed by: Dena Todd MD (04/27/2021 12:36 PM) [id number]
[2021-04-27 13:11] LABS: BASO % 0 % (0-3); EOS % 0 % (0-3); HEMATOCRIT 36.8 % (36.0-47.0); HEMOGLOBIN 11.9 g/dL (12.0-15.5); LYMPH % 30 % (24-48); MEAN CORPUSCULAR HEMOGLOBIN 28 pg (25-35); MEAN CORPUSCULAR HGB CONC 32 g/dL (31-37); MEAN CORPUSCULAR VOLUME 87 fL (79-100); MONO # 0.5 x10^3/uL (0.0-1.1); MONO % 7 % (0-9); NEUT # 4.1 x10^3uL (1.8-7.7); NEUT % 62 % (31-73); PLATELET COUNT 316 x10^3/uL (140-400); RED BLOOD COUNT 4.21 x10^6/uL (3.50-5.40); RED CELL DISTRIBUTION WIDTH 14.6 % (11.5-14.5); WHITE BLOOD COUNT 6.6 x10^3/uL (4.0-11.0)
[2021-04-27 13:14] LABS: CALCIUM 8.8 mg/dL (8.5-10.1); CREATININE 0.8 mg/dL (0.6-1.0); GFR 90.1; POTASSIUM 4.1 mmol/L (3.5-5.1)
[2021-04-27 13:15] LABS: BARBITURATES NEG (NEG); BENZODIAZEPINES NEG (NEG); CANNABINOIDS POS (NEG); COCAINE NEG (NEG); METHADONE NEG (NEG); OPIATES NEG (NEG); PHENCYCLIDINE NEG (NEG)
[2021-04-27 13:20] LABS: ALBUMIN 3.5 g/dL (3.4-5.0); ALBUMIN/GLOBULIN RATIO 0.8 (1.0-1.7); TOTAL BILIRUBIN 0.1 mg/dL (0.2-1.0); TOTAL PROTEIN 7.8 g/dL (6.4-8.2)
[2021-04-27 13:20] LABS: AMPHETAMINE/METHAMPHETAMINE POS (NEG)
[2021-04-27 13:44] LABS: BACTERIA,URINE FEW /HPF (0-FEW); BILIRUBIN,URINE NEG (NEG); CLARITY,URINE CLEAR; COLOR,URINE STRAW; GLUCOSE,URINE NEG (NEG); NITRITE,URINE NEG (NEG); SQUAMOUS EPITHELIAL CELL,UR MANY /LPF; UROBILINOGEN,URINE 0.2 mg/dL (0.2 mg/dL); WBC,URINE OCC /HPF (0-4)
[2021-04-27 13:55] VITALS: BP 142/81
--- NOTE | 2021-04-29 12:49 | EKG ---
[address] [address] Test Date: 2021-04-27 Test Time: 11:40:29 Pat Name: LEANDRO RODRÍGUEZ Department: Room: Gender: F Application Trainer: MANAN : 1965 Requested By: JAIRO DANIEL Order Number: [id number] Reading MD: Fly Chaparro Measurements Intervals Orange Rate: 70 P: 48 KS: 142 QRS: 41 QRSD: 90 T: 54 QT: 402 QTc: 437 Interpretive Statements SINUS RHYTHM NORMAL ECG RI6.02 No previous ECG available for comparison Electronically Signed On 04-29-2021 12:48:53 CAFETERIA CLERK by Fly Chaparro
== END 2021-04-27 14:10 | disposition home or self-care (01) ==
LOC: ER 11:10
DX: R41.82 Altered mental status, unspecified (principal); R41.0 Disorientation, unspecified; R30.9 Painful micturition, unspecified; R19.7 Diarrhea, unspecified; F31.9 Bipolar disorder, unspecified; M79.7 Fibromyalgia; Z88.6 Allergy status to analgesic agent; Z88.8 Allergy status to other drugs, medicaments and biological substances
CPT/HCPCS: 36415; 70450; 74177; 80053; 80307; 81001; 83605; 83690; 84484; 85025; 93005; 99285; G0480